=== PATIENT | male | born 1990 | race African-American/Black ===

== ENCOUNTER 2016-05-02 03:39 | Emergency (ER) | payer SELFPAY ==
[~2016-05-02] VITALS: Ht 177.8 cm; Wt 80.0 kg
[~2016-05-02 03:39] MED LIST: AMIT10 PO; IBUP800T23 PO
[2016-05-02 03:46] VITALS: BP 133/71; PULSE 100; RESP 16; TEMP 97; O2SAT 100
[2016-05-02] MEDS ORDERED: ONDANSETRON HCL 4 MG/2 ML VIAL IV PUSH ONE (04:00)
[2016-05-02] MEDS ORDERED: SODIUM CHLOR 0.9% 1000 ML INJ 1,000 ML IV ONE (04:15)
[2016-05-02 04:27] LABS: AUTOMATED NEUTROPHIL # 3.5 TH/MM3 (1.8-7.7); BASOPHIL # 0.1 TH/MM3 (0-0.2); EOSINOPHIL % 0.6 % (0.0-4.0); HEMATOCRIT 42.9 % (39.0-51.0); HEMO FLAGS DIFF FINAL; LYMPH % 37.3 % (9.0-44.0); LYMPHOCYTE # 2.5 TH/MM3 (1.0-4.8); MEAN CELL VOLUME 88.8 FL (80.0-100.0); MEAN CORPUSCULAR HEMOGLOBIN 29.5 PG (27.0-34.0); MEAN CORPUSCULAR HGB CONC 33.2 % (32.0-36.0); MONO % 9.5 % (0.0-8.0); NEUT % 51.6 % (16.0-70.0); PLATELET COUNT 357 TH/MM3 (150-450); RED BLOOD COUNT 4.83 MIL/MM3 (4.50-5.90); RED CELL DISTRIBUTION WIDTH 13.6 % (11.6-17.2); WHITE BLOOD COUNT 6.8 TH/MM3 (4.0-11.0)
[2016-05-02 04:30] VITALS: BP 127/69; PULSE 76; RESP 16; O2SAT 98
[2016-05-02 05:13] LABS: ALKALINE PHOSPHATASE 83 U/L (45-117); ALT (GPT) 45 U/L (12-78); ANION GAP 9 MEQ/L (5-15); AST (GOT) 29 U/L (15-37); BLOOD UREA NITROGEN 6 MG/DL (7-18); CHLORIDE 107 MEQ/L (98-107); GLOMERULAR FILTRATION RATE 102 ML/MIN (>89); POTASSIUM 3.8 MEQ/L (3.5-5.1); SODIUM (NA) 144 MEQ/L (136-145); TOTAL BILIRUBIN ADULT 0.4 MG/DL (0.2-1.0)
--- NOTE | 2016-05-02 06:01 | RADRPT ---
EXAM DATE/TIME: 05/02/2016 04:09 [place] COMPARISON: No previous studies available for comparison. INDICATIONS : Fall, ETOH RADIATION DOSE: 56.35 CTDIvol (mGy) MEDICAL HISTORY : None SURGICAL HISTORY : None. ENCOUNTER: Initial ACUITY: 1 day PAIN SCALE: 0/10 LOCATION: cranial TECHNIQUE: Multiple contiguous axial images were obtained of the head. Using automated exposure control and adj ustment of the mA and/or kV according to patient size, radiation dose was kept as low as reasonably a chievable to obtain optimal diagnostic quality images. FINDINGS: CEREBRUM: The ventricles are normal for age. No evidence of midline shift, mass lesion, hemorrhage or acute in farction. No extra-axial fluid collections are seen. POSTERIOR FOSSA: The cerebellum and brainstem are intact. The 4th ventricle is midline. The cerebellopontine angle i s unremarkable. EXTRACRANIAL: The visualized portion of the orbits is intact. SKULL: The calvaria is intact. No evidence of skull fracture. CONCLUSION: Normal examination. Bert Sorto MD on May 02, 2016 at 5:58 Board Certified Radiologist. This report was verified electronically.
[2016-05-02 06:30] VITALS: BP 114/58; PULSE 76; RESP 16; O2SAT 98
[2016-05-02 07:00] VITALS: BP 120/65; PULSE 85; RESP 16; O2SAT 97
[2016-05-02 07:53] VITALS: BP 114/58; PULSE 70; RESP 15; O2SAT 99
--- NOTE | 2016-05-02 08:00 | PD ---
HPI Chief Complaint: Alcohol/Drug Intoxication Time Seen by Provider: 04:02 Travel History International Travel<30 days: No Contact w/Intl Traveler<30days: No Traveled to known affect area: No History of Present Illness HPI Patient is a 25-year-old male who comes in unconscious. Per EMS, he was drinking tonight and he fell out of his bed. His roommate was nervous because he fell out of the bed and did not seem to responding. Patient is awake, but not really answering questions. He is unable to provide much history at this time. PENDING SALE TO [facility] Past Medical History Medical History: Unable to Obtain Tetanus Vaccination: Unknown Past Surgical History Surgical History: Unable to Obtain Social History Alcohol Use: Yes Tobacco Use: No Allergies-Medications (Allergen,Severity, Reaction): Coded Allergies: No Known Allergies (Verified , 05/02/16) Reported Meds & Prescriptions Reported Meds & Active Scripts Active Active Prescriptions or Reported Medications Unobtainable Review of Systems ROS Limitations: Intoxication Physical Exam Exam Limitations: Intoxication Narrative GENERAL: Awakens to light painful stimuli. Alcohol on breath. SKIN: Warm and dry. HEAD: Atraumatic. Normocephalic. EYES: Pupils equal and round. No scleral icterus. ENT: Mucous membranes pink and moist. NECK: Trachea midline. No JVD. CARDIOVASCULAR: Regular rate and rhythm. No murmur appreciated. RESPIRATORY: No accessory muscle use. Clear to auscultation. Breath sounds equal bilaterally. GASTROINTESTINAL: Abdomen soft, non-tender, nondistended. MUSCULOSKELETAL: No obvious deformities. No clubbing. No cyanosis. No edema. NEUROLOGICAL: Lethargic, but awakens easily No obvious cranial nerve deficits. Motor grossly within normal limits. PSYCHIATRIC: Appropriate mood and affect; insight and judgment normal. Data Data Last Documented VS Vital Signs Date Time Temp Pulse Resp B/P Pulse Ox O2 Delivery O2 Flow Rate FiO2 05/02/16 07:53 70 15 114/58 99 Room Air 05/02/16 07:00 2 05/02/16 03:46 97.0 Orders Ondansetron Inj (Zofran Inj) (05/02/16 04:00) Complete Blood Count With Diff (05/02/16 04:08) Comprehensive Metabolic Panel (05/02/16 04:08) Alcohol (Ethanol) (05/02/16 04:08) Ct Brain W/O Iv Contrast(Rout) (05/02/16 ) Sodium Chlor 0.9% 1000 Ml Inj (Ns 1000 M (05/02/16 04:15) Labs Laboratory Tests Test 05/02/16 04:00 White Blood Count 6.8 TH/MM3 Red Blood Count 4.83 MIL/MM3 Hemoglobin 14.3 GM/DL Hematocrit 42.9 % Mean Corpuscular Volume 88.8 FL Mean Corpuscular Hemoglobin 29.5 PG Mean Corpuscular Hemoglobin 33.2 % Concent Red Cell Distribution Width 13.6 % Platelet Count 357 TH/MM3 Mean Platelet Volume 8.5 FL Neutrophils (%) (Auto) 51.6 % Lymphocytes (%) (Auto) 37.3 % Monocytes (%) (Auto) 9.5 % Eosinophils (%) (Auto) 0.6 % Basophils (%) (Auto) 1.0 % Neutrophils # (Auto) 3.5 TH/MM3 Lymphocytes # (Auto) 2.5 TH/MM3 Monocytes # (Auto) 0.6 TH/MM3 Eosinophils # (Auto) 0.0 TH/MM3 Basophils # (Auto) 0.1 TH/MM3 CBC Comment DIFF FINAL Differential Comment Sodium Level 144 MEQ/L Potassium Level 3.8 MEQ/L Chloride Level 107 MEQ/L Carbon Dioxide Level 28.0 MEQ/L Anion Gap 9 MEQ/L Blood Urea Nitrogen 6 MG/DL Creatinine 1.06 MG/DL Estimat Glomerular Filtration 102 ML/MIN Rate Random Glucose 119 MG/DL Calcium Level 8.4 MG/DL Total Bilirubin 0.4 MG/DL Aspartate Amino Transf 29 U/L (AST/SGOT) Alanine Aminotransferase 45 U/L (ALT/SGPT) Alkaline Phosphatase 83 U/L Total Protein 8.3 GM/DL Albumin 4.1 GM/DL Ethyl Alcohol Level 225 MG/DL [facility] Medical Decision Making Medical Screen Exam Complete: Yes Emergency Medical Condition: Yes Differential Diagnosis Intoxication versus head injury versus electrolyte abnormality Narrative Course Patient is a 25-year-old male who comes in after he rolled out of bed and is unconscious. Patient awakens easily to painful stimuli. IV established, labs sent. Alcohol levels to 25. CT of the head performed shows no acute abnormalities. Patient given IV fluids and Zofran. Observed in the ED. He began to wake up and returned to normal. Discharged with his friend. Advised to avoid alcohol in the future. Advised to return to the ED as needed for any worsening symptoms. Diagnosis Primary Impression: Alcohol intoxication Qualified Code: F10.120 - Alcohol intoxication, uncomplicated Patient Instructions: Alcohol Intoxication (ED), General Instructions Additional Instructions: Avoid excessive alcohol consumption in the future. Follow up with your doctor. Return to the ED as needed for any worsening symptoms. Scripts Unable to Obtain Active Prescriptions or Reported Meds Disposition: 01 DISCHARGE HOME Condition: Stable Marlene Valente MD May 02, 2016 08:00
[2016-05-02 10:00] VITALS: BP 116/68; PULSE 68; RESP 14; O2SAT 99
== END 2016-05-02 10:53 | disposition home or self-care (01) ==
LOC: NEPE 03:39
DX: F10.120 Alcohol abuse with intoxication, uncomplicated (principal); W06.XXXA Fall from bed, initial encounter
CPT/HCPCS: 70450; 80053; 80320; 85025; 96361; 96374; 99285; J2405; J7030